=== PATIENT | female | born 1970 | race Caucasian/White ===

== ENCOUNTER → 2017-01-29 | Outpatient (CLI) | payer OTHER ==
[~2017-01-29] MED LIST: ACET50TA PO; NIFE15CA PO; NO HOME MEDS; PERCOCET PO; TRAZO50TA PO; XARE15TA PO; [UNRECOGNIZED DRUG - OTHER] PO
[2017-01-29 16:19] LABS: PROGESTERONE 29.6 NG/ML
[2017-01-29 16:59] LABS: ESTRADIOL 316.9 PG/ML
== END ==
LOC: M LAB 06:56
PROVIDERS: ATTEND Obstetrics & Gynecology Reproductive Endocrinology
DX: N97.9 Female infertility, unspecified (principal)

== ENCOUNTER 2017-03-19 10:14 | Emergency (ER) | payer OTHER ==
[~2017-03-19] VITALS: Ht 162.6 cm; Wt 72.6 kg
[2017-03-19] MEDS ORDERED: XARE1TAB PO (12:35)
[2017-03-19 12:37] VITALS: BP 146/90
--- NOTE | 2017-03-19 13:05 | REP ---
LEFT UPPER EXTREMITY DUPLEX DOPPLER VENOUS ULTRASOUND: Real-time compression and duplex Doppler interrogation of left upper extremity deep venous system is performed. There is occlusive thrombus in the left brachial vein. Otherwise the visualized left jugular, subclavian, axillary, basilic and cephalic veins are compressible with intraluminal flow and no other evidence of deep vein thrombosis. IMPRESSION: Occlusive deep vein thrombosis left brachial vein. Signed by Michele Ornelas MD 03/19/2017 08:08 P
== END 2017-03-19 12:44 | disposition home or self-care (01) ==
LOC: M ED 10:54
DX: I82.622 Acute embolism and thrombosis of deep veins of left upper extremity (principal); F99 Mental disorder, not otherwise specified; F17.210 Nicotine dependence, cigarettes, uncomplicated

== ENCOUNTER 2021-11-14 10:05 | Inpatient (IN) | payer OTHER ==
[2021-11-14] VITALS (13 sets, daily range): BP systolic 103–112; BP diastolic 52–68
[~2021-11-14] VITALS: Ht 162.6 cm; Wt 75.6 kg
[2021-11-14] MEDS: NS 1,000 ML IV SCH ×2 (03:39→16:03)
[~2021-11-14 10:05] MED LIST changes: -ACET50TA PO; +MAPA500T17 PO; +TRAZ1TAB36 PO; -TRAZO50TA PO; +XARE1TAB PO
[2021-11-14] MEDS ORDERED: NS 500 ML IV ONE (10:45)
[2021-11-14 11:32] LABS: INR 0.92; PROTHROMBIN TIME 12.8 SECONDS (12.7-14.5)
[2021-11-14 11:33] LABS: BASO # 0.1 10^3/uL (0.0-0.2); BASO % 0.6 % (0.0-1.0); EOS % 0.4 % (0.0-3.0); HEMATOCRIT 14.7 % (36.0-47.0); HEMOGLOBIN 3.6 g/dl (12.0-15.5); LYMPH # 2.4 10^3/uL (1.5-5.0); LYMPH % 23.3 % (24.0-44.0); MEAN CORPUSCULAR HEMOGLOBIN 14.9 pg (27.0-33.0); MEAN CORPUSCULAR HGB CONC 24.5 g/dl (32.0-36.5); MONO # 0.5 10^3/uL (0.0-0.8); MONO % 4.9 % (2.0-8.0); NEUTROPHILS # 7.3 10^3/uL (1.5-8.5); NEUTROPHILS % 69.9 % (36.0-66.0); PARTIAL THROMBOPLASTIN TIME 27.2 SECONDS (25.9-37.0); PLATELET COUNT, AUTOMATED 198 10^3/uL (150-450); RED BLOOD COUNT 2.41 10^6/uL (4.00-5.40); WHITE BLOOD COUNT 10.4 10^3/uL (4.0-10.0)
[2021-11-14 11:53] LABS: ALBUMIN 3.7 GM/DL (3.2-5.2); ALT/SGPT 15 U/L (12-78); AMYLASE 39 U/L (25-115); BILIRUBIN,DIRECT < 0.1 MG/DL (0.0-0.2); BILIRUBIN,TOTAL 0.2 MG/DL (0.2-1.0); HCG, SERUM QUALITATIVE NEGATIVE (NEGATIVE); LIPASE 122 U/L (73-393)
--- NOTE | 2021-11-14 11:53 | REP ---
INDICATION: heavy bleeding COMPARISON: None. TECHNIQUE: Transabdominal pelvic ultrasound followed by transvaginal examination for better evaluation of the endometrium and adnexa with color Doppler evaluation of the ovaries. FINDINGS: Bladder is collapsed. Heterogeneous enlarged uterus measures 10.9 x 6.7 x 8.1 cm and underlying poorly defined myomatous changes and/or adenomyomatosis. The endometrial complex is incompletely visualized/evaluated. Right ovary measures 9.1 x 7.2 x 9.3 cm (RI 0.65) and is dominated by a complex septated cyst measuring 9.1 x 7.2 x 8.7 cm. Left ovary measures 4.1 x 2.8 x 2.5 cm (RI 0.80) and includes 2.6 x 2.4 x 1.8 cm simple cyst. No pelvic fluid or adnexal mass lesion identified. IMPRESSION: 1. Enlarged heterogeneous suspected poorly definable myomatous changes to the uterus. 2. Large septated right ovarian cyst measuring up to 9 cm and 2.6 cm simple cyst in the left ovary. Findings warrant 4-6 week follow-up evaluation. <Electronically signed by Amaury Trimble > 11/14/21 [id number]
[2021-11-14 12:09] LABS: RSV AMPLIFICATION NEGATIVE (NEGATIVE)
[2021-11-14] MEDS ORDERED: ACET500T15 PO (12:54)
[2021-11-14] MEDS ORDERED: HOME MED LIST COMPLETE! XX SCH (12:55)
--- NOTE | 2021-11-14 13:16 | HPEPDOC ---
General Date of Admission Nov 14, 2021 at 12:33 Date of Service: Nov 14, 2021 Other Providers Erica Jung CNM, VERÓNICA Attending Physician: COLBY MONTAÑO MD. Chief Complaint The patient is a 51-year-old female with complaints of dizziness and heavy vaginal bleeding. Source: Patient Exam Limitations: No limitations Associated Symptoms: Dizziness History of Present Illness Nick is a 51-year-old female who is a who presented to the ED with complaints of dizziness and heavy vaginal bleeding. Her cycle started 10 days ago and she reports this it the first time in years she has had this amount of heavy bleeding that has lasted this long. Reports heavy cycles since delivery of her daughter in 1992. She reports soaking through pads and passing some clots. She states over the weekend her bleeding was heavier and yesterday and this morning she noted dizziness when she would get up and move, fogginess, weakness and decreased energy. She denies abdominal pain. She does report having a D&C about 7 years ago due to heavy vaginal bleeding after being treated for a DVT and being on a blood thinner. Home Medications Scheduled PRN Acetaminophen (Acetaminophen) 500 Mg Tablet, 500 MG PO Q6H PRN for PAIN LEVEL 1- 4, (Reported) Allergies Coded Allergies: No Known Allergies (Unverified , 11/23/20) Past Medical History Medical History DVT anemia History of a vaginal delivery of living male 08/09/1991 and of a living female 02/28/1993 No history of a pap smear in 5+ years and no history of mammogram. 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 A-FIB/CHADSVASC A-FIB History Current/History of A-Fib/PAF?: No Current PO Anticoag Therapy: No Review of Systems Constitutional: Reports: Malaise, Weakness, Fatigue, Lethargy Cardiovascular: Reports: Lt Headedness Genitourinary: Reports: Other Symptoms (excessive vaginal bleeding) Hematologic: Reports: Bleeding Excessively Physical Examination General Exam: Positive: Alert, No Acute Distress Chest Exam: Positive: Clear to auscultation Heart Exam: Positive: Regular Rhythm Abdomen Exam: Positive: Soft, Other (no tenderness with palpation) Psych Exam: Positive: Oriented x 3 Other physical findings Pelvic exam done in ED by Dr. Haro NAME: NICK MORALES DATE OF : 1970 AGE: 51 SEX: F REPORT #: [id number] ROOM: ED TECHNOLOGIST: GERMANIA DOCTOR: Sherman Kaur MD Ordered for Date&Time: 11/14/21 1052 cc: [~ rep ct ivnm] Service Date&Time: 11/14/21 1139 EXAMINATION REQUESTED: US PELVIC NON-OB COMPLETE REASON FOR PATIENT VISIT: DIZZINESS REASON FOR EXAM/COMMENT: heavy bleeding INDICATION: heavy bleeding COMPARISON: None. TECHNIQUE: Transabdominal pelvic ultrasound followed by transvaginal examination for better evaluation of the endometrium and adnexa with color Doppler evaluation of the ovaries. FINDINGS: Bladder is collapsed. Heterogeneous enlarged uterus measures 10.9 x 6.7 x 8.1 cm and underlying poorly defined myomatous changes and/or adenomyomatosis. The endometrial complex is incompletely visualized/evaluated. Right ovary measures 9.1 x 7.2 x 9.3 cm (RI 0.65) and is dominated by a complex septated cyst measuring 9.1 x 7.2 x 8.7 cm. Left ovary measures 4.1 x 2.8 x 2.5 cm (RI 0.80) and includes 2.6 x 2.4 x 1.8 cm simple cyst. No pelvic fluid or adnexal mass lesion identified. IMPRESSION: 1. Enlarged heterogeneous suspected poorly definable myomatous changes to the uterus. 2. Large septated right ovarian cyst measuring up to 9 cm and 2.6 cm simple cyst in the left ovary. Findings warrant 4-6 week follow-up evaluation. <Electronically signed by Amaury Trimble > 11/14/21 1150 Vital Signs Vital Signs Date Time Temp Pulse Resp B/P (MAP) Pulse Ox O2 Delivery O2 Flow Rate FiO2 11/14/21 10:16 97.0 109 18 146/67 (93) 100 Room Air Height (in): 64 Weight (kg): 165 BMI (kg): 28.6 Laboratory Data Labs 24H Laboratory Tests 2 11/14/21 10:57: Immature Granulocyte % (Auto) 0.9, Neutrophils (%) (Auto) 69.9H, Lymphocytes (%) (Auto) 23.3L, Monocytes (%) (Auto) 4.9, Eosinophils (%) (Auto) 0.4, Basophils (%) (Auto) 0.6, Neutrophils # (Auto) 7.3, Lymphocytes # (Auto) 2.4, Monocytes # (Auto) 0.5, Eosinophils # (Auto) 0.0, Basophils # (Auto) 0.1, Nucleated Red Blood Cells % (auto) 0.3H, Prothrombin Time 12.8, Prothromb Time International Ratio 0.92, Activated Partial Thromboplast Time 27.2, Total Bilirubin 0.2, Direct Bilirubin < 0.1, Aspartate Amino Transf (AST/SGOT) 10, Alanine Aminotransferase (ALT/SGPT) 15, Alkaline Phosphatase 53, Total Protein 7.0, Albumin 3.7, Albumin/Globulin Ratio 1.1L, Amylase Level 39, Lipase 122, Human Chorionic Gonadotropin, Qual NEGATIVE, Coronavirus (COVID-19)(PCR) NEGATIVE, Influenza Type A (RT-PCR) NEGATIVE, Influenza Type B (RT-PCR) NEGATIVE, Respiratory Syncytial Virus (PCR) NEGATIVE 11/14/21 11:49: POC Glucose (Misc Panel) 103, POC Sodium (Misc Panel) 138, POC Potassium (Misc Panel) 3.9, POC Chloride (Misc Panel) 105, POC Total CO2 (Misc Panel) 21.0L, POC Blood Urea Nitrogen (Misc Panel 6L, POC Ionized Calcium (Misc Panel) 4.9, POC Creatinine (Misc Panel) 0.8, POC Hematocrit (Misc Panel) 18.0L CBC/BMP Laboratory Tests 11/14/21 10:57 Microbiology Microbiology 11/14/21 Wet Prep - Final, Complete Assessment/Plan Assessment: excessive vaginal bleeding; severe anemia, adenomyosis, septated ovarian cyst Problems (1) Vaginal bleeding Onset Date: ~ 11/04/2021 Status: Acute Response to Treatment: Improving (2) Anemia due to acute blood loss Status: Acute Response to Treatment: Improving Plan / VTE VTE Prophylaxis Ordered?: Yes Plan Plan Admit to med/surg floor Type and cross match 4 units of PRBC Repeat CBC in morning Provera 10 mg PO now and daily NS at 125 cc/hr OOB with assistance until dizziness subsides IVF: Continue Diet: Continue Current (regular diet) Diagnostics: Repeat Labs in AM Anticipated Discharge: Home ERICA JUNG CNM Nov 14, 2021 13:16
[2021-11-14] MEDS: medroxyPROGESTERone 5MG TABLET PO SCH (16:02)
[2021-11-15] VITALS (17 sets, daily range): BP systolic 105–164; BP diastolic 63–94
[2021-11-15 05:44] LABS: BASO # 0.1 10^3/uL (0.0-0.2); EOS # 0.1 10^3/uL (0.0-0.5); EOS % 1.6 % (0.0-3.0); HEMATOCRIT 26.4 % (36.0-47.0); HEMOGLOBIN 7.9 g/dl (12.0-15.5); LYMPH # 2.5 10^3/uL (1.5-5.0); MEAN CORPUSCULAR HEMOGLOBIN 21.9 pg (27.0-33.0); MEAN CORPUSCULAR HGB CONC 29.9 g/dl (32.0-36.5); MEAN CORPUSCULAR VOLUME 73.1 fl (80.0-96.0); MONO # 0.7 10^3/uL (0.0-0.8); NEUTROPHILS # 5.3 10^3/uL (1.5-8.5); NEUTROPHILS % 59.7 % (36.0-66.0); PLATELET COUNT, AUTOMATED 148 10^3/uL (150-450); RED BLOOD COUNT 3.61 10^6/uL (4.00-5.40); WHITE BLOOD COUNT 8.9 10^3/uL (4.0-10.0)
[2021-11-15] MEDS: NS 1,000 ML IV SCH ×2 (07:44→12:00)
[2021-11-15] MEDS: medroxyPROGESTERone 5MG TABLET PO SCH (09:08)
--- NOTE | 2021-11-15 10:47 | DS.PDOC ---
Discharge Summary General Date of Admission Nov 14, 2021 at 12:33 Date of Discharge 11/15/21 Attending Physician: MICHELLE GOODRICH DO Discharge Summary PROCEDURES PERFORMED DURING STAY: None. ADMITTING DIAGNOSES: 1. History of DVT 2. History of anemia DISCHARGE DIAGNOSES: 1. Abnormal uterine bleeding - secondary to adenomyosis 2. Anemia- secondary to blood loss 3. Dizziness 4. Right septated ovarian cyst 5. History of DVT COMPLICATIONS/CHIEF COMPLAINT: Dizziness. HISTORY OF PRESENT ILLNESS: a pleasant 51-year-old female who is presented to the ED with chief complaint of dizziness and heavy vaginal bleeding. Patient reports having regular monthly menses prior to this episode. She states she started her cycle on 11/04/21 and was bleeding so heavily that she had to use both tampons and pads at the same time. She reports having to change the tampons and pads every 1-2 hours. She has not had vaginal bleeding this heavy in 7 years after she was started on a blood thinner secondary to a DVT. She states over the weekend her bleeding became heavier and she noted d izziness for the last two days. She admits to fogginess, weakness and decreased energy. She denies abdominal pain. Patient has a history of a D&C about 7 years ago secondary to heavy vaginal bleeding after being treated for a DVT and being on a blood thinner. HOSPITAL COURSE: While in the ED, the patient was found to have a hemoglobin of 3.6 with accompanying vaginal blood loss on pelvic exam. Patient was admitted to the med/surgical floor and started on IV NS at a rate of 125cc/hr. A pelvic u ltrasound was ordered which exhibited adenomyosis and a right septated ovarian cyst measuring 9.0cm. Patient was transfused 4 units of packed red blood cells for anemia; her hemoglobin increased to 7.3 on 11/15/21. She was started on provera 10mg q day to stop vaginal bleeding. The patient's vaginal bleeding decreased overnight and she noticed light spotting on a tampon. Patient was able to ambulate without dizziness and eat a regular diet on the morning of discharge. Prior to discharge patient was transfused two additional units of packed red blood cells with a goal hemoglobin of 10/hematocrit of 30. Tumor markers were ordered to evaluate for ovarian cancer. CA 125 antigen was 23 and HE4 was still pending upon discharge. She will need to follow up outpatient at the gynecology office for results of tumor markers, to be evaluated for a hysterectomy, and to have an endometrial biopsy performed. ALLERGIES: Please see below. PHYSICAL EXAMINATION ON DISCHARGE: VITAL SIGNS: Please see below. GENERAL: patient is alert and oriented. She is sitting comfortably in no acute distress. ABDOMINAL EXAMINATION: soft, nondistended, uterus is palpable above pubic bone, no tenderness to palpation EXTREMITIES: no edema or cyanosis Musculoskeletal: patient is able to ambulate without assistance PSYCHIATRIC EXAMINATION: mood and affect are appropriate LABORATORY DATA: Please see below. IMAGING: Pelvic ultrasound 11/14/21: IMPRESSION: 1. Enlarged heterogeneous suspected poorly definable myomatous changes to the uterus. 2. Large septated right ovarian cyst measuring up to 9 cm and 2.6 cm simple cyst in the left ovary. Findings warrant 4-6 week follow-up evaluation. PROGNOSIS: Good ACTIVITY: As tolerated DIET: Regular diet DISCHARGE PLAN: discharge to home DISPOSITION: patient is medically cleared to be discharged home DISCHARGE INSTRUCTIONS: 1. Follow up with Gynecology office in the next 7-10 days. 2. Follow up with primary care physician within 7 days of discharge. ITEMS TO FOLLOWUP ON ON OUTPATIENT: 1. Endometrial biopsy 2. Follow up on tumor markers 3. Discuss hysterectomy DISCHARGE CONDITION: Stable TIME SPENT ON DISCHARGE: 25 minutes. Vital Signs/I&Os Vital Signs Date Time Temp Pulse Resp B/P (MAP) Pulse Ox O2 Delivery O2 Flow Rate FiO2 11/15/21 10:00 98.1 71 16 126/77 (93) 100 Room Air 11/15/21 02:01 11/14/21 22:47 97.0 I&O- Last 24 Hours up to 6 AM 11/15/21 06:00 Intake Total 3530 ml Output Total 0 ml Balance 3530 ml Laboratory Data Labs 24H Laboratory Tests 2 11/14/21 10:57: Immature Granulocyte % (Auto) 0.9, Neutrophils (%) (Auto) 69.9H, Lymphocytes (%) (Auto) 23.3L, Monocytes (%) (Auto) 4.9, Eosinophils (%) (Auto) 0.4, Basophils (%) (Auto) 0.6, Neutrophils # (Auto) 7.3, Lymphocytes # (Auto) 2.4, Monocytes # (Auto) 0.5, Eosinophils # (Auto) 0.0, Basophils # (Auto) 0.1, Nucleated Red Blood Cells % (auto) 0.3H, Prothrombin Time 12.8, Prothromb Time International Ratio 0.92, Activated Partial Thromboplast Time 27.2, Total Bilirubin 0.2, Direct Bilirubin < 0.1, Aspartate Amino Transf (AST/SGOT) 10, Alanine Aminotransferase (ALT/SGPT) 15, Alkaline Phosphatase 53, Total Protein 7.0, Albumin 3.7, Albumin/Globulin Ratio 1.1L, Amylase Level 39, Lipase 122, Human Chorionic Gonadotropin, Qual NEGATIVE, Coronavirus (COVID-19)(PCR) NEGATIVE, Influenza Type A (RT-PCR) NEGATIVE, Influenza Type B (RT-PCR) NEGATIVE, Respiratory Syncytial Virus (PCR) NEGATIVE 11/14/21 11:49: POC Glucose (Misc Panel) 103, POC Sodium (Misc Panel) 138, POC Potassium (Misc Panel) 3.9, POC Chloride (Misc Panel) 105, POC Total CO2 (Misc Panel) 21.0L, POC Blood Urea Nitrogen (Misc Panel 6L, POC Ionized Calcium (Misc Panel) 4.9, POC Creatinine (Misc Panel) 0.8, POC Hematocrit (Misc Panel) 18.0L 11/15/21 05:14: CA 125 Antigen 23.3 11/15/21 05:16: Immature Granulocyte % (Auto) 1.7, Neutrophils (%) (Auto) 59.7, Lymphocytes (%) (Auto) 28.0, Monocytes (%) (Auto) 8.0, Eosinophils (%) (Auto) 1.6, Basophils (%) (Auto) 1.0, Neutrophils # (Auto) 5.3, Lymphocytes # (Auto) 2.5, Monocytes # (Auto) 0.7, Eosinophils # (Auto) 0.1, Basophils # (Auto) 0.1, Nucleated Red Blood Cells % (auto) 1.5H CBC/BMP Laboratory Tests 11/14/21 10:57 11/15/21 05:16 Microbiology Microbiology 11/14/21 Wet Prep - Final, Complete Discharge Medications Scheduled Medroxyprogesterone Acetate (Medroxyprogesterone Acetate) 5 Mg Tablet, 10 MG PO DAILY Scheduled PRN Acetaminophen (Acetaminophen) 500 Mg Tablet, 500 MG PO Q6H PRN for PAIN LEVEL 1- 4, (Reported) Allergies Coded Allergies: No Known Allergies (Unverified , 11/23/20) MELISSA LOREDO DO Nov 15, 2021 10:47
[2021-11-15] MEDS ORDERED: MEDR5TAB3 PO (13:11)
--- NOTE | 2021-11-15 13:17 | DS.PDOC ---
Discharge Summary General Date of Admission Nov 14, 2021 at 12:33 Date of Discharge 11/15/2021 Discharge Summary PROCEDURES PERFORMED DURING STAY: Blood transfusion ADMITTING DIAGNOSES: 1. Abnormal uterine bleeding, adenomyosis, right adnexal mass 2. Severe anemia. DISCHARGE DIAGNOSES: 1. Same. COMPLICATIONS/CHIEF COMPLAINT: Dizziness. DISCHARGE SUMMARY: 51-year-old that presented with lightheaded dizziness and found to be severely anemic. Upon further questioning and work-up it was discovered that she has significant abnormal uterine bleeding from probable adenomyosis per pelvic ultrasound imaging. She was also noted to have a 9 cm complex cystic adnexal mass. Initial tumor marker work-up negative for high risk of malignancy. A Temple score will be calculated in the near future to furt her elucidate this malignancy risk. Patient is in agreement that she needs a hysterectomy in the near future. To stabilize her and correct her anemia she received 6 units of packed red blood cells over the course of her hospital stay. She had an appropriate rise in her H&H. She will be followed closely over the next week for endometrial biopsy and preoperative counseling/clearance. DISCHARGE MEDICATIONS: Please see below. Provera 10 mg daily x10-day course to hold any acute uterine bleeding. ALLERGIES: Please see below. PHYSICAL EXAMINATION ON DISCHARGE: VITAL SIGNS: Please see below. GENERAL: Alert and oriented no apparent distress CARDIOVASCULAR EXAMINATION: S1-S2 RESPIRATORY EXAMINATION: Nonlabored ABDOMINAL EXAMINATION: Benign no guarding or rebound tenderness EXTREMITIES: Nonedematous nontender SKIN: Normal NEUROLOGICAL EXAMINATION: No deficit PSYCHIATRIC EXAMINATION: Appropriate affect LABORATORY DATA: Please see below. IMAGING: See Arithmatica PROGNOSIS: Arrangements for a hysterectomy will be accomplished in the near future ACTIVITY: As tolerated DIET: Regular DISCHARGE PLAN: Clinical follow-up for an endometrial biopsy and hysterectomy scheduling DISPOSITION: Home DISCHARGE CONDITION: Clinically improved and stable. TIME SPENT ON DISCHARGE: 20 minutes. Vital Signs/I&Os Vital Signs Date Time Temp Pulse Resp B/P (MAP) Pulse Ox O2 Delivery O2 Flow Rate FiO2 11/15/21 10:00 98.1 71 16 126/77 (93) 100 Room Air 11/15/21 02:01 11/14/21 22:47 97.0 I&O- Last 24 Hours up to 6 AM 11/15/21 06:00 Intake Total 3530 ml Output Total 0 ml Balance 3530 ml Laboratory Data Labs 24H Laboratory Tests 2 11/15/21 05:14: CA 125 Antigen 23.3 11/15/21 05:16: Immature Granulocyte % (Auto) 1.7, Neutrophils (%) (Auto) 59.7, Lymphocytes (%) (Auto) 28.0, Monocytes (%) (Auto) 8.0, Eosinophils (%) (Auto) 1.6, Basophils (%) (Auto) 1.0, Neutrophils # (Auto) 5.3, Lymphocytes # (Auto) 2.5, Monocytes # (Auto) 0.7, Eosinophils # (Auto) 0.1, Basophils # (Auto) 0.1, Nucleated Red Blood Cells % (auto) 1.5H CBC/BMP Laboratory Tests 11/15/21 05:16 Microbiology Microbiology 11/14/21 Wet Prep - Final, Complete Discharge Medications Scheduled Medroxyprogesterone Acetate (Medroxyprogesterone Acetate) 5 Mg Tablet, 10 MG PO DAILY Scheduled PRN Acetaminophen (Acetaminophen) 500 Mg Tablet, 500 MG PO Q6H PRN for PAIN LEVEL 1- 4, (Reported) Allergies Coded Allergies: No Known Allergies (Unverified , 11/23/20) MICHELLE GOODRICH DO Nov 15, 2021 13:17
[2021-11-17 14:13] LABS: HE4 84.8 pmol/L (0.0-105.2)
== END 2021-11-15 19:05 | disposition home or self-care (01) | DRG 760 ==
LOC: M ED 10:05 → M ED INP 12:33 → ENRESERV 12:55 → M MSPAV 14:22
PROVIDERS: ADMIT Advanced Practice Midwife; ATTEND Obstetrics & Gynecology
PROC: 30233N1 Transfusion of Nonautologous Red Blood Cells into Peripheral Vein, Percutaneous Approach (ICD-10-PCS; principal; 2021-11-14)
DX: N80.0 Endometriosis of uterus (principal); D62 Acute posthemorrhagic anemia; N92.0 Excessive and frequent menstruation with regular cycle; F17.200 Nicotine dependence, unspecified, uncomplicated; N83.201 Unspecified ovarian cyst, right side; Z20.822 Contact with and (suspected) exposure to COVID-19; Z86.718 Personal history of other venous thrombosis and embolism; N83.202 Unspecified ovarian cyst, left side

== ENCOUNTER → 2021-12-19 | Outpatient (CLI) | payer OTHER ==
[~2021-12-19] MED LIST changes: +ACET500T15 PO; +MEDR5TAB3 PO
== END ==
LOC: M LABSMTC 09:52
PROVIDERS: ATTEND Anesthesiology
DX: Z01.818 Encounter for other preprocedural examination (principal); Z11.52 Encounter for screening for COVID-19

== ENCOUNTER 2021-12-23 10:45 | Day surgery (SDC) | payer OTHER ==
[~2021-12-23] VITALS: Ht 162.6 cm; Wt 76.1 kg
[~2021-12-23 10:45] MED LIST changes: +LIDOCAINE 1% MDV 20ML VIAL SQ PRN; +LR 1,000 ML IV ONE; +ceFAZolin SOD 2 GM in IV 1 EA IV ONE
[2021-12-23] MEDS ORDERED: IBUP80TA PO (10:56)
[2021-12-23 11:37] LABS: HEMATOCRIT 31.7 % (36.0-47.0); HEMOGLOBIN 9.4 g/dl (12.0-15.5); MEAN CORPUSCULAR HGB CONC 29.7 g/dl (32.0-36.5); MEAN CORPUSCULAR VOLUME 81.1 fl (80.0-96.0); PLATELET COUNT, AUTOMATED 376 10^3/uL (150-450); RED BLOOD COUNT 3.91 10^6/uL (4.00-5.40); WHITE BLOOD COUNT 7.9 10^3/uL (4.0-10.0)
[2021-12-23] MEDS ORDERED: BUPIVACAINE HCL 0.25% 30ML VIAL As Ordered ONE (12:01)
[2021-12-23] MEDS ORDERED: propofoL 200 MG/20 ML VIAL As Ordered ONE (12:37)
[2021-12-23] MEDS ORDERED: fentaNYL 100 MCG/2 ML INJECTION As Ordered ONE (12:37)
[2021-12-23] MEDS ORDERED: ROCURONIUM BROMIDE 50 MG/5 ML VIAL As Ordered ONE ×2 (12:37→14:06)
[2021-12-23] MEDS ORDERED: dexameTHASONE 4 MG/ML 1ML VIAL (J1100 PER 1MG) As Ordered ONE (12:37)
[2021-12-23] MEDS ORDERED: HYDROmorphone HCL 2MG/ML 1ML VIAL As Ordered ONE (12:37)
[2021-12-23] MEDS ORDERED: MIDAZOLAM INJ 2MG/2ML VIAL (J2250 PER 1MG) As Ordered ONE (12:37)
[2021-12-23] MEDS ORDERED: LIDOCAINE 2% 100MG/5ML SDV (FOR ANES.) As Ordered ONE (12:37)
[2021-12-23] MEDS ORDERED: ONDANSETRON 4MG/2ML VIAL As Ordered ONE ×2 (12:37→16:50)
[2021-12-23] MEDS ORDERED: SUGAMMADEX SODIUM 500 MG/5 ML VIAL (BRIDION) As Ordered ONE (12:37)
[2021-12-23] MEDS ORDERED: ACETAMINOPHEN 1000MG 100ML IV BTL (OFIRMEV) (J0131 PER 10MG) As Ordered ONE (12:39)
[2021-12-23] MEDS ORDERED: METHYLENE BLUE 0.5% (5MG/ML) 10 ML AMP (PROVAYBLUE) As Ordered ONE (15:38)
[2021-12-23] MEDS ORDERED: FUROSEMIDE 100MG/10ML VIAL (J1940) As Ordered ONE (15:57)
[2021-12-23] MEDS ORDERED: CONRAY-60 60% 50ML VIAL (Q9961) As Ordered ONE (16:01)
[2021-12-23] MEDS ORDERED: PHENYLephrine 500MCG 5ML (100MCG/ML) SYRINGE As Ordered ONE (16:08)
[2021-12-23] MEDS ORDERED: LR 1,000 ML IV SCH (17:10)
[2021-12-23] MEDS ORDERED: ONDANSETRON 4MG/2ML VIAL IV PRN (17:10)
[2021-12-23] MEDS ORDERED: oxyCODONE 5MG TAB PO PRN (17:10)
[2021-12-23] MEDS ORDERED: METOCLOPRAMIDE INJ 10MG/2ML VIAL (J2765 PER 1) IV PRN (17:10)
[2021-12-23] MEDS ORDERED: fentaNYL 100 MCG/2 ML INJECTION IV PRN (17:10)
[2021-12-23] MEDS ORDERED: ENOXAPARIN 40MG/0.4ML SYRINGE (J1650 PER 10MG) SC ONE (17:30)
[2021-12-23 18:20] VITALS: BP 98/52
== END 2021-12-23 18:48 | disposition home or self-care (01) ==
LOC: M SDC 10:45
PROVIDERS: ATTEND Obstetrics & Gynecology
DX: N80.0 Endometriosis of uterus (principal); Z96.89 Presence of other specified functional implants; D25.9 Leiomyoma of uterus, unspecified; D27.0 Benign neoplasm of right ovary; N83.01 Follicular cyst of right ovary; N73.6 Female pelvic peritoneal adhesions (postinfective); R39.198 Other difficulties with micturition; K21.9 Gastro-esophageal reflux disease without esophagitis; D64.9 Anemia, unspecified; Z86.718 Personal history of other venous thrombosis and embolism; Z86.711 Personal history of pulmonary embolism; F17.210 Nicotine dependence, cigarettes, uncomplicated; Z79.890 Hormone replacement therapy; Z31.0 Encounter for reversal of previous sterilization
CPT/HCPCS: 36415; 52000; 58554; 74420; 81025; 85027; 86850; 86870; 86900; 86901; 88307; J0131; J0690; J1100; J1170; J1650; J1940; J2250; J2370; J2405; J2765; J3010; Q9961; Q9968; S2900

== ENCOUNTER → 2022-01-02 | Outpatient (REF) | payer OTHER ==
[~2022-01-02] MED LIST changes: +IBUP80TA PO; -LIDOCAINE 1% MDV 20ML VIAL SQ PRN; -LR 1,000 ML IV ONE; -ceFAZolin SOD 2 GM in IV 1 EA IV ONE
[2022-01-02 17:24] LABS: APPEARANCE, URINE TURBID (CLEAR); BACTERIA, URINE AUTO NEGATIVE (NEGATIVE); BILIRUBIN, URINE AUTO NEGATIVE (NEGATIVE); BLOOD, URINE BLOOD 3+ (NEGATIVE); COLOR, URINE YELLOW (YELLOW); GLUCOSE, URINE (UA) AUTO NEGATIVE (NEGATIVE); KETONE, URINE AUTO NEGATIVE (NEGATIVE); LEUKOCYTE ESTERASE, URINE AUTO 3+ (NEGATIVE); MUCUS, URINE SMALL (NEGATIVE); NITRITE, URINE AUTO NEGATIVE (NEGATIVE); PROTEIN, URINE AUTO 2+ mg/dL (NEGATIVE); RBC, URINE AUTO 27 /HPF (0-3); SQUAMOUS EPITHELIAL CELL UR AU 23 /HPF (0-6); UROBILINOGEN, URINE AUTO 0.2 mg/dL (0.0-2.0); WBC, URINE AUTO TNTC /HPF (0-3)
== END ==
LOC: M SFHCWAGY 14:53
PROVIDERS: ATTEND Obstetrics & Gynecology
DX: R30.0 Dysuria (principal)

== ENCOUNTER 2022-11-16 15:28 | Emergency (ER) | payer OTHER ==
[~2022-11-16] VITALS: Ht 162.6 cm; Wt 70.5 kg
[2022-11-16] MEDS ORDERED: MORPHINE 4 MG/ML 1ML VIAL IV ONE (16:35)
[2022-11-16] MEDS ORDERED: ONDANSETRON 4MG 2ML VIAL IV ONE (16:35)
[2022-11-16 17:17] LABS: BASO # 0.1 10^3/uL (0.0-0.2); BASO % 0.5 % (0.0-1.0); EOS # 0.2 10^3/uL (0.0-0.5); EOS % 1.5 % (0.0-3.0); HEMATOCRIT 43.1 % (36.0-47.0); HEMOGLOBIN 13.4 g/dl (12.0-15.5); LYMPH # 1.8 10^3/uL (1.5-5.0); LYMPH % 16.4 % (24.0-44.0); MEAN CORPUSCULAR HEMOGLOBIN 26.8 pg (27.0-33.0); MEAN CORPUSCULAR HGB CONC 31.1 g/dl (32.0-36.5); MEAN CORPUSCULAR VOLUME 86.2 fl (80.0-96.0); MONO # 0.8 10^3/uL (0.0-0.8); MONO % 7.1 % (2.0-8.0); PLATELET COUNT, AUTOMATED 268 10^3/uL (150-450); WHITE BLOOD COUNT 10.8 10^3/uL (4.0-10.0)
[2022-11-16] MEDS ORDERED: diphenhydrAMINE 50MG/ML VIAL As Ordered ONE (17:31)
[2022-11-16] MEDS ORDERED: diphenhydrAMINE 50MG/ML VIAL IV STA (17:31)
[2022-11-16] MEDS ORDERED: ISOVUE-370 76% 100ML VIAL As Ordered ONE (17:42)
[2022-11-16] MEDS ORDERED: PERCOCET 5MG/325MG TAB PO ONE (18:40)
[2022-11-16] MEDS ORDERED: ASPE4PAD TOP (20:07)
[2022-11-16] MEDS ORDERED: HYDR-3713 PO (20:07)
[2022-11-16] MEDS ORDERED: NORCO 5/325MG TABLET (HOME DOSE PACK) PO ONE (20:10)
[2022-11-16 20:40] VITALS: BP 119/63
== END 2022-11-16 20:40 | disposition home or self-care (01) ==
LOC: M ED 15:28
DX: R07.89 Other chest pain (principal); R10.9 Unspecified abdominal pain; W01.198A Fall on same level from slipping, tripping and stumbling with subsequent striking against other object, initial encounter; Y92.002 Bathroom of unspecified non-institutional (private) residence as the place of occurrence of the external cause; Z86.711 Personal history of pulmonary embolism; Z86.718 Personal history of other venous thrombosis and embolism; F17.210 Nicotine dependence, cigarettes, uncomplicated
CPT/HCPCS: 71260; 74177; 80047; 84132; 85025; 96374; 96375; 99284; J1200; J2270; J2405

== ENCOUNTER → 2024-05-03 | Outpatient (CLI) | payer OTHER ==
[~2024-05-03] MED LIST changes: +ASPE4PAD TOP; +HYDR-3713 PO
[2024-05-03 10:13] LABS: HEMATOCRIT 50.8 % (36.0-47.0); HEMOGLOBIN 16.7 g/dl (12.0-15.5); MEAN CORPUSCULAR HEMOGLOBIN 29.9 pg (27.0-33.0); MEAN CORPUSCULAR HGB CONC 32.9 g/dl (32.0-36.5); MEAN CORPUSCULAR VOLUME 90.9 fl (80.0-96.0); PLATELET COUNT, AUTOMATED 199 10^3/uL (150-450); RED BLOOD COUNT 5.59 10^6/uL (4.00-5.40); WHITE BLOOD COUNT 5.9 10^3/uL (4.0-10.0)
[2024-05-03 10:24] LABS: HEMOGLOBIN A1c 5.8 % (4.0-6.0)
[2024-05-03 10:49] LABS: THYROID STIMULATING HORMONE 8.364 uIU/ML (0.55-4.78); TOTAL 25(OH) VITAMIN D 8.2 NG/ML (20.0-100.0)
[2024-05-03 10:50] LABS: TOTAL IRON BINDING CAPACITY 363 UG/DL (250-425)
[2024-05-03 10:51] LABS: ALBUMIN 4.1 G/DL (3.2-5.2); ALKALINE PHOSPHATASE 90 U/L (46-116); ALT/SGPT 25 U/L (7.0-40); AST/SGOT 23 U/L (<34); BILIRUBIN,TOTAL 0.6 MG/DL (0.3-1.2); BLOOD UREA NITROGEN 13 MG/DL (9-23); CALCIUM LEVEL 9.6 MG/DL (8.5-10.1); CARBON DIOXIDE LEVEL 25 MMOL/L (20-31); CHLORIDE LEVEL 107 MMOL/L (98-107); CHOLESTEROL LEVEL 302 MG/DL (<200); CHOLESTEROL RISK RATIO 4.74 (<5); CREATININE FOR GFR 0.83 MG/DL (0.55-1.30); GLOMERULAR FILTRATION RATE > 60.0 (>51); GLUCOSE, FASTING 94 MG/DL (60-100); HDL CHOLESTEROL 63.6 MG/DL (>40); IRON (FE) 119 UG/DL (50-170); LDL CHOLESTEROL 205.2 MG/DL (<100); NON-HDL-C 238.4 MG/DL; PERCENT SATURATION 32.8 % (13.2-45.0); POTASSIUM SERUM 5.1 MMOL/L (3.5-5.1); SODIUM LEVEL 141 MMOL/L (136-145); TOTAL PROTEIN 7.5 G/DL (5.7-8.2); TRIGLYCERIDES LEVEL 166 MG/DL (<150)
== END ==
LOC: M RAD 08:35
PROVIDERS: ATTEND Family Medicine
DX: D64.9 Anemia, unspecified (principal); R53.83 Other fatigue; J44.9 Chronic obstructive pulmonary disease, unspecified; E03.9 Hypothyroidism, unspecified